=== PATIENT | female | born 1995 | race American Indian/Alaskan Native ===

== ENCOUNTER 2020-08-12 05:23 | Inpatient (IN) | payer BC, OTHER ==
--- NOTE | 2020-08-04 11:13 | History and Physical Report ---
History of Present Illness Date of examination: 08/04/20 Chief complaint: repeat c/s History of present illness: 24 yo at 39w1d c/b hx prior c/s x 1 for prolapsed cord, class I Obesity presenting for repeat c/s. No labor complaints or PIH symptoms. + FM Past History Past Surgical History: section Family/Genetic History: none Social history: no significant social history - Obstetrical History : 3 Para: 2 Hx # Term Pregnancies: 2 Number of Living Children: 2 Review of Systems All systems: negative (expect HPI) - Physical Exam Abdomen: Positive: normal appearance, normal bowel sounds, other (gravid) - Obstetrical FHR: category 1 Uterine Contraction Monitor Mode: External Uterine Contraction Pattern: Absent Results All other labs normal. Assessment and Plan - Patient Problems (1) H/O: Status: Acute Plan to address problem: To OR for repeat c section. -Desires future fertility -Questions solicited and answered -Consented in the chart
[~2020-08-12 05:23] MED LIST: BICITRA ORAL LIQD 30ML PO ONE; FAMOTIDINE 20 MG/2 ML INJ IV ONE; LACTATED RINGERS 1,000 ML IV SCH; METOCLOPRAMIDE 10 MG/2 ML INJ IV ONE; OXYTOCIN DRIP 30 UNITS/500 ML BAG IV SCH; ceFAZolin/Water 2 GM/20 ML 2 GM/20 ML SYRINGE IV NR
[2020-08-12] MEDS ORDERED: METOCLOPRAMIDE 10 MG/2 ML INJ IV NR (05:30)
[2020-08-12] MEDS ORDERED: OXYTOCIN DRIP 30 UNITS/500 ML BAG IV SCH ×2 (05:30→10:00)
[2020-08-12] MEDS ORDERED: ceFAZolin/Water 2 GM/20 ML 2 GM/20 ML SYRINGE IV NR ×2 (05:30→07:00)
[2020-08-12] MEDS ORDERED: BICITRA ORAL LIQD 30ML PO ONE (05:30)
[2020-08-12] MEDS ORDERED: FAMOTIDINE 20 MG/2 ML INJ IV ONE (05:30)
[2020-08-12] MEDS: LACTATED RINGERS 1,000 ML IV SCH ×3 (05:55→16:37)
[2020-08-12] MEDS ORDERED: METOCLOPRAMIDE 10 MG/2 ML INJ IV ONE (06:10)
[2020-08-12 06:31] LABS: Basophils # (Auto) 0.1 K/mm3 (0.0-0.1); Basophils % (Auto) 0.5 % (0.0-1.8); Eosinophils # (Auto) 0.1 K/mm3 (0.0-0.4); Eosinophils % (Auto) 0.6 % (0.0-4.3); Hematocrit 32.9 % (30.3-42.9); Hemoglobin 11.1 gm/dl (10.1-14.3); Lymphocytes # (Auto) 2.5 K/mm3 (1.2-5.4); Lymphocytes % (Auto) 23.2 % (13.4-35.0); Mean Corpuscular HGB Conc 34 % (30-34); Mean Corpuscular Volume 83 fl (79-97); Monocytes # (Auto) 0.4 K/mm3 (0.0-0.8); Monocytes % (Auto) 4.2 % (0.0-7.3); Platelet Count 230 K/mm3 (140-440); Red Blood Count 3.96 M/mm3 (3.65-5.03); Red Cell Distribution Width 13.9 % (13.2-15.2)
--- NOTE | 2020-08-12 07:09 | Anesthesia Day of Surgery ---
Anesthesia Day of Surgery - Day of Surgery Patient Examined: Yes Patient H&P Reviewed: Yes Patient is NPO: Yes
--- NOTE | 2020-08-12 07:09 | Anesthesia Consultation ---
Anesthesia Consult and Med Hx Date of service: 08/12/20 - Airway Anesthetic Teeth Evaluation: Good ROM Head & Neck: Adequate Mental/Hyoid Distance: Adequate Mallampati Class: Class II Intubation Access Assessment: Probably Good - Pulmonary Exam CTA: Yes - Cardiac Exam Cardiac Exam: RRR - Pre-Operative Health Status ASA Pre-Surgery Classification: ASA2 Proposed Anesthetic Plan: Spinal - Pulmonary Hx Asthma: No - Cardiovascular System Hx Hypertension: No - Central Nervous System Hx Seizures: No Hx Psychiatric Problems: No - Endocrine Hx Renal Disease: No Hx Hypothyroidism: No Hx Hyperthyroidism: No - Hematic Hx Anemia: No Hx Sickle Cell Disease: No - Other Systems Hx Alcohol Use: No
[2020-08-12] MEDS ORDERED: ceFAZolin/STERILE WATER 2 GM/20 ML SYRINGE IV ONE (07:39)
[2020-08-12] MEDS ORDERED: LACTATED RINGERS 1,000 ML ONE (07:55)
[2020-08-12] MEDS ORDERED: SODIUM CHLORIDE 0.9% IRR 1,500 ML BOTTLE IR ONE (08:03)
[2020-08-12] MEDS ORDERED: WATER FOR IRRIG STERILE 1,500 ML BOTTLE IR ONE (08:03)
[2020-08-12] MEDS ORDERED: KETAMINE/STERILE WATER 50 MG/ML SYRINGE ONE ×2 (08:04→08:36)
[2020-08-12] MEDS ORDERED: MIDAZOLAM 2 MG/2 ML INJ ONE (08:06)
[2020-08-12] MEDS ORDERED: KETOROLAC 30 MG/1 ML INJ ONE (08:07)
[2020-08-12] MEDS ORDERED: dexAMETHasone 20 MG/5 ML VIAL ONE (08:07)
[2020-08-12] MEDS ORDERED: BUPIVACAINE/PF (0.5%) 5 MG/1 ML 30 ML VIAL INFILTRATI ONE (08:07)
[2020-08-12] MEDS ORDERED: fentaNYL 100 MCG/2 ML INJ ONE (08:27)
--- NOTE | 2020-08-12 08:59 | Procedure Note ---
OB Delivery Note - Delivery Date of Delivery: 08/12/20 Surgeon: SENTHIL LOWE JR Estimated blood loss: 500cc - Section Preop diagnosis: repeat Postop diagnosis: same section procedure: section, repeat low transverse Disposition: PACU Complications: none Narrative: Indication: 24-year-old at 39 weeks 1 day complicated history of prior C- section x1 for prolapsed cord presenting for repeat . Findings: Normal uterus, tubes and ovaries. Clear fluid. No nuchal cord. Delivery of male infant at 0814 Weight 3282 g Height 20 inches Apgars 8/9 EBL 500 cc Intraoperative IV fluids 1600 cc Urine output 200 cc Procedure: Patient was taken to the operating room prepped and draped in the usual sterile fashion. Pfannenstiel skin incision was made and carried down to the underlying fascia. Fascia was incised and the incision was distended bi laterally. Rectus fascia was dissected off the rectus muscle superiorly and inferiorly. Peritoneum was identified and entered. Peritoneal incision extended superiorly and inferiorly. The bladder was visualized. The bladder blade was placed. A bladder flap was created. Uterine hysterotomy incision was made and extended bilaterally. The baby was delivered in the typical vertex fashion. Baby was bulb suction at delivery. The cord was cut and clamped and handed off to the team. The placenta was delivered spontaneously. The uterus was exteriorized and cleared of all clots and debris. Uterine incision was closed with a 0 Vicryl in a running locked fashion. Good hemostasis was noted. The urine was noted to be clear. Uterus, tubes, and ovaries were returned to the abdominal cavity. Bilateral gutters were cleared and the abdomen and pelvis were irrigated. Good hemostasis noted. Rectus muscles reapproximated with 2-0 Vicryl. Attention was directed towards the rectus fascia which was reapproximated with 0 PDS in a running fashion. The subcutaneous tissue was irrigated and reapproximated with 2-0 Vicryl in a running fashion. Skin was closed with a 4-0 Vicryl in a subcuticular fashion. The procedure was completed and the patient tolerated the procedure well. All instruments and lap counts were correct x2. - A at 1 minute: 8 at 5 minutes: 9 Gender: Male
[2020-08-12] MEDS ORDERED: ONDANSETRON 4 MG/2 ML INJ IV PRN (09:30)
[2020-08-12] MEDS ORDERED: PROMETHAZINE 25 MG RECT SUPP PR PRN (09:30)
[2020-08-12] MEDS ORDERED: HYDROmorphone 1 MG/1 ML INJ IV PRN (09:30)
[2020-08-12] MEDS ORDERED: WITCH HAZEL/ GLYCERIN PAD TP PRN (09:30)
[2020-08-12] MEDS ORDERED: NALOXONE 0.4 MG/1 ML INJ IV PRN (09:30)
[2020-08-12] MEDS ORDERED: oxyCODONE /ACETAMINOPHEN 5-325MG TAB PO PRN (09:30)
--- NOTE | 2020-08-12 09:44 | Post Anesthesia Evaluation ---
- Post Anesthesia Evaluation Patient Participated: Yes Airway Patent: Yes Stable Respiratory Function: Yes Nausea/Vomiting: No Temp > 96.8F: Yes Pain Manageable: Yes Adequeate Hydration: Yes Anesthesia Complications: No Block Receding Appropriately: Yes
--- NOTE | 2020-08-12 09:46 | Progress Note ---
Regional Anesthesia Block - Regional Anesthesia Block Start Time: 09:15 Stop Time: 19:20 Performed By:: DILEEP CARABALLO Procedure: U/S guided bilateral tap block performed for post-operative pain requested by Dr. Marinelli. H&P & labs reviewed. Procedure explained, questions answered, consent obtained. Patient in the supine position with ekg, blood pressure cuff and pulse ox on and working in PACU. Timeout performed immediately before start of procedure. Probe placed in the mid-axillary line and the external oblique, internal oblique, and transverse abdominus muscles identified. Skin was cleansed with 0.5% Chlorahexadine and allowed to dry. A 4" 20 G Garcia echogenic needle was advanced in plane until the tip was in the fascial plane between the internal oblique and the transverse abdominus. After negative aspiration 35 ml/side of [30 ml 0.5% Bupivacaine], [50 mcg dexmedetomidine], [8 mg dexamethasone], and [40 ml sterile saline] was injected in 5 ml increments with negative aspiration in between. Patient tolerated procedure well. Larisa UREÑA
[2020-08-12] MEDS ORDERED: LANOLIN/ZINC/DIMETHICONE (LANSINOH) 7 GM TP PRN (10:00)
[2020-08-12] MEDS ORDERED: HYDROCORTISONE 25 MG RECTAL SUPP PR PRN (10:00)
[2020-08-12] MEDS: KETOROLAC 30 MG/1 ML INJ IV PRN ×2 (16:32→23:45)
[2020-08-12 21:22] LABS: Hematocrit 30.1 % (30.3-42.9)
[2020-08-12] MEDS: SIMETHICONE 80 MG CHEW TAB PO PRN (21:22)
[2020-08-12] MEDS ORDERED: SENNOSIDES 8.6 MG TAB PO PRN (22:00)
[2020-08-12] MEDS ORDERED: MAGNESIUM HYDROXIDE (MOM) ORAL LIQD UDC PO PRN (22:00)
[2020-08-13] MEDS: IBUPROFEN 800 MG TAB PO PRN ×2 (09:15→18:44)
--- NOTE | 2020-08-13 09:38 | Progress Note ---
Assessment and Plan A: /postop day 1 S/P repeat LTCS. Anemia. P: Encouraged ambulation. Supplement with iron. Subjective - Subjective Date of service: 08/13/20 Principal diagnosis: /postop day 1 S/P repeat LTCS Patient reports: appetite normal, voiding normally, pain well controlled, flatus, ambulating normally, no dizzy ambulation, no nauseated : doing well Objective - Vital Signs Latest vital signs: Vital Signs Temp Pulse Resp BP BP Pulse Ox 08/13/20 05:27 98.3 F 82 20 107/72 95 08/12/20 23:57 97.8 F 76 18 109/74 94 08/12/20 20:10 98 F 90 20 117/81 96 08/12/20 16:32 20 08/12/20 16:05 97.8 F 83 18 122/78 98 08/12/20 13:11 97.9 F 73 08/12/20 11:14 18 108/67 08/12/20 10:05 97.7 F 69 15 98/60 98 08/12/20 09:50 68 13 92/53 97 08/12/20 09:40 76 15 102/62 98 Intake and Output 08/12/20 08/13/20 08/13/20 23:59 07:59 15:59 Intake Total 240 360 Output Total 2400 600 Balance -2160 360 -600 Intake: Oral 240 Intake, Free Water 360 Output: Urine 2400 600 Indwelling Catheter 2400 Void 600 Other: Total, Intake Amount 240 Total, Output Amount 800 600 # Voids Indwelling Catheter 1 Void 1 - Exam Cardiovascular: Present: Regular rate, No murmurs Lungs: Present: Clear to auscultation Abdomen: Present: normal appearance, soft, normal bowel sounds. Absent: distention, tenderness, guarding, rigidity Uterus: Present: normal, firm, fundal height below umbilicus. Absent: bogginess, tenderness Extremities: Present: normal. Absent: tenderness Incision: Present: normal, dry, dressed - Labs Labs: Abnormal lab results 08/12/20 Range/Units 21:01 Hgb 10.0 L (10.1-14.3) gm/dl Hct 30.1 L (30.3-42.9) %
[2020-08-13] MEDS: oxyCODONE /ACETAMINOPHEN 5-325MG TAB PO PRN ×2 (11:53→21:37)
[2020-08-13] MEDS: FERROUS SULFATE 325 MG TAB PO SCH (21:37)
[2020-08-14] MEDS: IBUPROFEN 800 MG TAB PO PRN ×2 (06:24→11:36)
[2020-08-14] MEDS: SIMETHICONE 80 MG CHEW TAB PO PRN (09:41)
[2020-08-14] MEDS: oxyCODONE /ACETAMINOPHEN 5-325MG TAB PO PRN ×2 (09:41→22:45)
[2020-08-14] MEDS: FERROUS SULFATE 325 MG TAB PO SCH (09:41)
--- NOTE | 2020-08-14 13:14 | Progress Note ---
Assessment and Plan A: /postop day 2 S/P repeat LTCS. Anemia. P: Continue iron supplementation. Encouraged ambulation. Anticipate discharge tomorrow if patient continues to do well. Subjective - Subjective Date of service: 08/14/20 Principal diagnosis: /postop day 2 S/P repeat LTCS Patient reports: appetite normal, voiding normally, pain well controlled, flatus, ambulating normally, no dizzy ambulation, no nauseated : doing well, nursing well Objective - Vital Signs Latest vital signs: Vital Signs Temp Pulse Resp BP BP Pulse Ox 08/14/20 11:36 18 08/14/20 09:41 20 08/14/20 07:40 97.7 F 75 18 105/64 95 08/14/20 06:24 16 08/14/20 01:22 97.9 F 75 18 102/61 97 08/13/20 21:37 16 08/13/20 15:52 97.9 F 81 18 121/74 98 Intake and Output 08/13/20 08/14/20 08/14/20 23:59 07:59 15:59 Intake Total 480 420 Balance 480 420 Intake: Intake, Free Water 480 420 Other: # Voids Void 2 1 - Exam Cardiovascular: Present: Regular rate, No murmurs Lungs: Present: Clear to auscultation Abdomen: Present: normal appearance, soft, normal bowel sounds. Absent: distention, tenderness, guarding, rigidity Uterus: Present: normal, firm, fundal height below umbilicus. Absent: bogginess, tenderness Extremities: Present: normal, edema (mild pedal edema bilaterally). Absent: tenderness Incision: Present: normal, dry, intact
[2020-08-15] MEDS: oxyCODONE /ACETAMINOPHEN 5-325MG TAB PO PRN (04:58)
--- NOTE | 2020-08-15 07:07 | Progress Note ---
Assessment and Plan A: /postop day 3 S/P repeat LTCS. Anemia. P: Discharge patient home today. /postop discharge instructions and warning signs discussed with patient. Activity restrictions and care of incision discussed with patient. Advised patient to continue taking her vitamins and iron supplements at home. Advised patient to avoid intercourse, lifting, driving, housework. Advised patient to follow up at [facility] in 1 week for incision check. Patient voiced understanding of all instructions. Subjective - Subjective Date of service: 08/15/20 Principal diagnosis: /postop day 3 S/P repeat LTCS Interval history: Patient requests discharge home today. Patient reports: appetite normal, voiding normally, pain well controlled, flatus, ambulating normally, no dizzy ambulation, no nauseated : doing well Objective - Vital Signs Latest vital signs: Vital Signs Temp Pulse Resp BP BP Pulse Ox 08/15/20 04:58 18 08/15/20 00:26 98.7 F 84 20 110/71 98 08/14/20 22:45 18 08/14/20 16:45 98.1 F 68 18 105/68 96 08/14/20 11:36 18 08/14/20 09:41 20 08/14/20 07:40 97.7 F 75 18 105/64 95 Intake and Output 08/14/20 08/14/20 08/15/20 15:59 23:59 07:59 Intake Total 640 240 Balance 640 240 Intake: Oral 640 240 Other: Total, Intake Amount 200 240 # Voids Void 1 2 - Exam Cardiovascular: Present: Regular rate, No murmurs Lungs: Present: Clear to auscultation Abdomen: Present: normal appearance, soft, normal bowel sounds. Absent: distention, tenderness, guarding, rigidity Uterus: Present: normal, firm, fundal height below umbilicus. Absent: bogginess, tenderness Extremities: Present: normal. Absent: tenderness, edema Incision: Present: normal, dry, intact
--- NOTE | 2020-08-15 07:11 | Discharge Summary ---
Providers - Providers Date of Admission: 08/12/20 05:23 Date of discharge: 08/15/20 Attending physician: VALDEZ MAGUIRE Primary care physician: VALDEZ MAGUIRE Hospitalization Reason for admission: section Delivery: Procedure: repeat low transverse Incision: normal, dry, intact Other procedures: none complications: none Discharge diagnosis: IUP at term delivered baby: male Pertinent studies: Labs Hospital course: Normal hospital course Condition at discharge: Good Disposition: DC-01 TO HOME OR SELFCARE - Discharge Diagnoses (1) Term delivered Status: Acute (2) Anemia Status: Acute Plan - Discharge Medications Prescriptions: Ibuprofen [Motrin 800 MG tab] 800 mg PO Q6H PRN #30 tablet PRN Reason: Pain, Mild (1-3) oxyCODONE /ACETAMINOPHEN [Percocet 5/325 mg] 1 tab PO Q6H PRN #30 tablet PRN Reason: Pain, Moderate (4-6) - Provider Discharge Summary Activity: routine, no sex for 6 weeks, no heavy lifting 4 weeks, no strenuous exercise Diet: routine Instructions: routine Additional instructions: Continue taking your vitamins and iron supplements at home. Follow up at [facility] in 1 week. Call your doctor immediately for: * Fever > 100.5 * Heavy vaginal bleeding ( >1 pad per hour) * Severe persistent headache * Shortness of breath * Reddened, hot, painful area to leg or breast * Drainage or odor from incision. * Keep incision clean and dry at all times and follow doctor's instructions regarding bathing/showering - Follow up plan Follow up: SENTHIL LOWE JR, MD [Staff Physician] - 7 Days
[2020-08-15] MEDS: IBUPROFEN 800 MG TAB PO PRN (11:55)
[2020-08-15] MEDS: FERROUS SULFATE 325 MG TAB PO SCH (11:55)
[2020-08-15 13:38] VITALS: BP 105/70
== END 2020-08-15 17:30 | disposition home or self-care (01) | DRG 766 ==
LOC: APU 05:23 → OB 12:04
PROVIDERS: ADMIT Obstetrics & Gynecology; ATTEND Obstetrics & Gynecology
PROC: 10D00Z1 Extraction of Products of Conception, Low, Open Approach (ICD-10-PCS; principal; 2020-08-12)
DX: O34.211 Maternal care for low transverse scar from previous cesarean delivery (principal); Z37.0 Single live birth; Z20.828 Contact with and (suspected) exposure to other viral communicable diseases; O99.214 Obesity complicating childbirth; E66.9 Obesity, unspecified; O90.81 Anemia of the puerperium; D64.9 Anemia, unspecified; Z3A.39 39 weeks gestation of pregnancy; Z88.5 Allergy status to narcotic agent
CPT/HCPCS: 36415; 85014; 85018; 85025; 86850; 86900; 86901; G0378; C1765; J0690; J1100; J1170; J1885; J2250; J2765; J3010; J3490; J7120; U0003